=== PATIENT | male | born 1945 | race Caucasian/White ===

== ENCOUNTER → 2017-02-26 | Outpatient (CLI) | payer OTHER ==
--- NOTE | 2017-02-26 13:40 | DIAGNOSTIC IMAGING REPORT ---
PROCEDURE: MR UPPER EXTREMITY W/O CONT-RT INDICATION: TEAR OF RT ROTATOR CUFF TECHNIQUE: PD and PD fat sat axial, T1 and PD fat sat coronal, PD and STIR sagittal sequences through the shoulder. COMPARISON: Shoulder 12/23/2016 plain films FINDINGS: Slightly suboptimal study secondary to patient's inability to hold still. Rotator cuff: Thickening and irregular intrinsic signal in the critical zone fibers of the rotator cuff. Mild irregularity of bursal and articular surface supraspinatus fibers and undersurface intrinsic signal and thickening in the infraspinatus fibers. Attenuation and undersurface irregularity involving the cranial fibers of the subscapularis tendon. Transverse humeral ligament remains intact. No full-thickness rotator cuff tear. Biceps tendon: Tendinopathy and partial thickness tearing of the distal intra-articular biceps tendon. Partial thickness tearing at the anchor of the extra-articular portion is normal in its position, thickness, and signal. Small amount of fluid in the biceps tendon sheath. The coracohumeral ligament component of the rotator interval is attenuated. The superior glenohumeral ligament appear. Osseous structures and articular surfaces: Type 2/three acromion. Moderate hypertrophy and irregularity at the acromioclavicular joint which impinges on the supraspinatus myotendinous junction. The marrow signal is normal. There is diffuse thinning of the cartilage surfaces of the glenohumeral joint, particularly along the anterior portion of the glenoid, but no full-thickness defect. Labral ligamentous complex: In the absence of intra-articular contrast, labrum is partially evaluated. There is intrinsic intermediate signal throughout the superior labrum. The anterior, and posterior labrum appears intact. There is a questionable tear of the inferior labrum along the anterior inferior portion. The anterior inferior glenohumeral ligament is suboptimally seen, but there is no significant high signal in this location suggestive of chronic scar formation. The distal middle glenohumeral ligament also demonstrates diffuse intermediate signal. Fluid, soft tissues, and joint space: There is a physiologic amount joint fluid present. Mild atrophy and intramuscular edema is seen in the supraspinatus muscle and to a lesser extent edema within the infraspinatus muscle. Trace edema in the subacromial subdeltoid bursa, mainly over the supraspinatus. No suspicious axillary masses. IMPRESSION: 1. Tendinopathy and partial thickness tearing of the supra and infraspinatus muscles with reactive vascular edema and slight atrophy of the supraspinatus. This is likely due to AC joint impingement. 2. Undersurface tearing of the subscapularis without dislocation the biceps tendon. 3. Tendinopathy and partial tearing of the intra-articular biceps tendon. 4. Partial tearing of the components of the rotator interval proximally. 5. Probable chronic strain with scarring of the anterior inferior glenohumeral ligament and distal glenohumeral ligament. This may predispose to adhesive capsulitis. Correlate with range of motion.
== END ==
LOC: MRI SRH 09:26
DX: M75.101 Unspecified rotator cuff tear or rupture of right shoulder, not specified as traumatic (principal); M75.81 Other shoulder lesions, right shoulder